=== PATIENT | female | born 2000 | race Caucasian/White ===

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

== ENCOUNTER 2022-08-27 21:26 | Emergency (ER) | payer BC, OTHER ==
[~2022-08-27] VITALS: Ht 172.7 cm; Wt 106.6 kg
[2022-08-27 21:31] VITALS: BP 128/78
== END 2022-08-27 22:57 | disposition home or self-care (01) ==
LOC: ER 21:26
DX: O99.713 Diseases of the skin and subcutaneous tissue complicating pregnancy, third trimester (principal); L05.01 Pilonidal cyst with abscess; Z88.5 Allergy status to narcotic agent; Z79.899 Other long term (current) drug therapy; O99.333 Smoking (tobacco) complicating pregnancy, third trimester; F17.200 Nicotine dependence, unspecified, uncomplicated; Z3A.32 32 weeks gestation of pregnancy
CPT/HCPCS: 10060; 99282-25; A9270

== ENCOUNTER 2022-09-05 18:45 | Emergency (ER) | payer BC, OTHER ==
[~2022-09-05] VITALS: Ht 172.7 cm; Wt 106.6 kg
[2022-09-05 18:55] VITALS: BP 149/83
== END 2022-09-05 20:17 | disposition home or self-care (01) ==
LOC: ER 18:45
DX: O99.713 Diseases of the skin and subcutaneous tissue complicating pregnancy, third trimester (principal); L05.01 Pilonidal cyst with abscess; O99.333 Smoking (tobacco) complicating pregnancy, third trimester; F17.210 Nicotine dependence, cigarettes, uncomplicated; Z3A.35 35 weeks gestation of pregnancy; Z88.5 Allergy status to narcotic agent
CPT/HCPCS: 10060; 99282-25

== ENCOUNTER 2022-10-22 20:09 | Emergency (ER) | payer BC, OTHER ==
[~2022-10-22] VITALS: Ht 172.7 cm; Wt 106.6 kg
[2022-10-22 20:27] VITALS: BP 149/93
== END 2022-10-22 21:12 | disposition home or self-care (01) ==
LOC: ER 20:09
DX: O99.713 Diseases of the skin and subcutaneous tissue complicating pregnancy, third trimester (principal); L05.91 Pilonidal cyst without abscess; O09.613 Supervision of young primigravida, third trimester; O99.333 Smoking (tobacco) complicating pregnancy, third trimester; F17.210 Nicotine dependence, cigarettes, uncomplicated; Z88.5 Allergy status to narcotic agent; Z3A.40 40 weeks gestation of pregnancy
CPT/HCPCS: 10061; 99282-25

== ENCOUNTER 2022-10-26 18:56 | Inpatient (IN) | payer BC, OTHER ==
[~2022-10-26] VITALS: Ht 172.7 cm; Wt 107.3 kg
[2022-10-26 20:37] LABS: BASOPHILS ABSOLUTE AUTO 0.04 K/mm3 (0.00-0.23); BASOPHILS PERCENT AUTO 0 % (0-2); EOSINOPHILS PERCENT AUTO 1 % (0-6); Hemoglobin 12.3 g/dL (11.5-16.0); IMMATURE GRAN ABSOLUTE AUTO 0.06 K/mm3 (0.00-0.10); IMMATURE GRAN PERCENT AUTO 1 % (0-1); LYMPHOCYTES ABSOLUTE AUTO 2.35 K/mm3 (0.84-5.20); LYMPHOCYTES PERCENT AUTO 20 % (21-46); MONOCYTES ABSOLUTE AUTO 0.92 K/mm3 (0.16-1.47); MONOCYTES PERCENT AUTO 8 % (4-13); Mean Corpuscular HGB 28.7 pg (26.0-34.0); Mean Corpuscular HGB Conc 34.2 g/dL (31.5-36.5); Mean Corpuscular Volume 84 fL (80-100); Mean Platelet Volume 11.4 fL (9.1-12.4); NEUTROPHILS ABSOLUTE AUTO 8.24 K/mm3 (1.96-9.15); NEUTROPHILS PERCENT AUTO 70 % (41-73); Platelet Count 281 K/mm3 (150-400); RDW Coefficient Variation 12.2 % (11.7-14.2); RDW Standard Deviation 36.8 fL (35.1-46.3); Red Blood Cell Count 4.29 M/mm3 (3.80-5.20); White Blood Cell Count 11.71 K/mm3 (4.00-11.30)
[2022-10-27] VITALS (42 sets, daily range): BP systolic 101–166; BP diastolic 55–96
[2022-10-28 01:33] VITALS: BP 109/68
[2022-10-28 03:57] VITALS: BP 126/76
[2022-10-28 07:37] VITALS: BP 134/82
[2022-10-28 08:06] LABS: Hematocrit 36.1 % (33.0-51.0); Hemoglobin 12.3 g/dL (11.5-16.0); Mean Corpuscular HGB 28.7 pg (26.0-34.0); Mean Corpuscular HGB Conc 34.1 g/dL (31.5-36.5); Mean Corpuscular Volume 84 fL (80-100); Mean Platelet Volume 11.2 fL (9.1-12.4); Platelet Count 272 K/mm3 (150-400); RDW Coefficient Variation 12.4 % (11.7-14.2); RDW Standard Deviation 37.4 fL (35.1-46.3); Red Blood Cell Count 4.28 M/mm3 (3.80-5.20)
[2022-10-28 12:30] VITALS: BP 118/77
--- NOTE | 2022-10-28 19:00 | NUR ---
DISCHARGE INSTRUCTIONS, WRITTEN AND VERBAL, GIVEN TO PT. ANSWERED ALL QUESITONS AND CONCERNS. IV DISCONTINUED. PT REFUSED ANY PRESCRIPTIONS. ALL PERSONAL BELONGINGS RETURNED. AWAITING FOLLOW UP APPOINTMENT AND DISCHARGE.
[2022-10-28 19:28] VITALS: BP 128/74
--- NOTE | 2022-10-28 19:35 | NUR ---
FOLLOW UP APPOINTMENT SCHEDULED. PT IS DISCHARGED HOME, DRIVEN BY RUBÉN.
== END 2022-10-28 19:45 | disposition home or self-care (01) | DRG 807 ==
LOC: OBS 18:56 → BC 18:58 → OBS 19:08 → BC 19:12
PROVIDERS: ADMIT Advanced Practice Midwife
PROC: 10E0XZZ Delivery of Products of Conception, External Approach (ICD-10-PCS; principal; 2022-10-27)
PROC: 3E0P7VZ Introduction of Hormone into Female Reproductive, Via Natural or Artificial Opening (ICD-10-PCS; 2022-10-27)
PROC: 3E033VJ Introduction of Other Hormone into Peripheral Vein, Percutaneous Approach (ICD-10-PCS; 2022-10-27)
PROC: 10907ZC Drainage of Amniotic Fluid, Therapeutic from Products of Conception, Via Natural or Artificial Opening (ICD-10-PCS; 2022-10-27)
PROC: 4A1HXCZ Monitoring of Products of Conception, Cardiac Rate, External Approach (ICD-10-PCS; 2022-10-27)
PROC: 00HU33Z Insertion of Infusion Device into Spinal Canal, Percutaneous Approach (ICD-10-PCS; 2022-10-27)
PROC: 3E0R3BZ Introduction of Anesthetic Agent into Spinal Canal, Percutaneous Approach (ICD-10-PCS; 2022-10-27)
PROC: 3E0234Z Introduction of Serum, Toxoid and Vaccine into Muscle, Percutaneous Approach (ICD-10-PCS; 2022-10-27)
DX: O48.0 Post-term pregnancy (principal); Z37.0 Single live birth; O99.334 Smoking (tobacco) complicating childbirth; F17.200 Nicotine dependence, unspecified, uncomplicated; Z3A.40 40 weeks gestation of pregnancy; Z88.5 Allergy status to narcotic agent; Z79.899 Other long term (current) drug therapy; Z67.21 Type B blood, Rh negative
CPT/HCPCS: 36415; 51702; 85025; 85027; 86850; 86900; 86901; A9270; J2590; J3010; J7120

== ENCOUNTER 2022-12-22 20:08 | Emergency (ER) | payer OTHER ==
[~2022-12-22] VITALS: Ht 172.7 cm; Wt 90.7 kg
[2022-12-23 01:00] VITALS: BP 113/74
[2022-12-23] MEDS ORDERED: IBUP800 PO (01:00)
== END 2022-12-23 02:20 | disposition home or self-care (01) ==
LOC: ER 20:08
DX: R07.9 Chest pain, unspecified (principal); Z88.5 Allergy status to narcotic agent; Z91.040 Latex allergy status; Z91.030 Bee allergy status; F17.210 Nicotine dependence, cigarettes, uncomplicated
CPT/HCPCS: 71045; 71260; 85379; 93005; 93010; 96374-59; 99285-25; J1885; Q9967

== ENCOUNTER 2024-02-22 20:23 | Emergency (ER) | payer OTHER ==
[~2024-02-22] VITALS: Ht 172.7 cm; Wt 117.9 kg
[~2024-02-22 20:23] MED LIST changes: +IBUP800 PO
[2024-02-22 20:30] VITALS: BP 137/94
== END 2024-02-23 | disposition home or self-care (01) ==
LOC: ER 20:23
DX: O99.713 Diseases of the skin and subcutaneous tissue complicating pregnancy, third trimester (principal); L05.01 Pilonidal cyst with abscess; O99.333 Smoking (tobacco) complicating pregnancy, third trimester; Z91.040 Latex allergy status; Z91.030 Bee allergy status; Z88.5 Allergy status to narcotic agent; Z3A.32 32 weeks gestation of pregnancy
CPT/HCPCS: 10080; 99282-25

== ENCOUNTER 2024-04-18 07:33 | Inpatient (IN) | payer OTHER ==
[~2024-04-18] VITALS: Ht 172.7 cm; Wt 118.0 kg
[2024-04-18] VITALS (31 sets, daily range): BP systolic 111–145; BP diastolic 68–101
[2024-04-18] MEDS ORDERED: Terbutaline Sulfate 1MG / ML 1 ML Amp ONE (07:52)
[2024-04-18] MEDS ORDERED: ALBU90OI INH (07:54)
[2024-04-18] MEDS ORDERED: Carboprost Tromethamine 250 MCG/ML 1ML Amp IM PRN (08:10)
[2024-04-18] MEDS ORDERED: Misoprostol 200 MCG Tab BC PRN (08:10)
[2024-04-18] MEDS ORDERED: Misoprostol 200 MCG Tab PR PRN (08:10)
[2024-04-18] MEDS ORDERED: Oxytocin 10 Unit / ML Vial IM PRN (08:10)
[2024-04-18] MEDS ORDERED: Methylergonovine Maleate 0.2MG / ML 1ML Amp IM PRN ×2 (08:10→21:35)
[2024-04-18] MEDS ORDERED: OXYTOCIN/RINGER'S LACTATE 500 ML IV PRN (08:10)
[2024-04-18] MEDS ORDERED: Lactated Ringer's 1,000 ML IV PRN (08:10)
[2024-04-18] MEDS ORDERED: Ondansetron HCl 2 MG / ML 2ML Vial IV PRN ×2 (08:10→17:10)
[2024-04-18] MEDS ORDERED: Acetaminophen 500 MG Tab PO PRN (08:10)
[2024-04-18] MEDS ORDERED: Calcium Carbonate 500 MG Tab Chew PO SCH (08:15)
[2024-04-18] MEDS ORDERED: Terbutaline Sulfate 1MG / ML 1 ML Amp SC PRN (08:15)
[2024-04-18] MEDS ORDERED: Tranexamic Acid 1,000 MG in NS 100 ML IV SCH (08:20)
[2024-04-18] MEDS ORDERED: Citric Acid/Sodium Citrate 30 ML BTL PO SCH (08:25)
[2024-04-18] MEDS ORDERED: CeFAZolin Sodium 2,000 MG in NS 100 ML IV SCH (08:25)
[2024-04-18] MEDS ORDERED: Metoclopramide HCl 5MG / ML 2ML Vial IV ONE (08:25)
[2024-04-18 08:32] LABS: BASOPHILS ABSOLUTE AUTO 0.05 K/mm3 (0.00-0.23); BASOPHILS PERCENT AUTO 0 % (0-2); EOSINOPHILS ABSOLUTE AUTO 0.08 K/mm3 (0.00-0.68); EOSINOPHILS PERCENT AUTO 1 % (0-6); Hematocrit 36.9 % (33.0-51.0); Hemoglobin 12.4 g/dL (11.5-16.0); IMMATURE GRAN ABSOLUTE AUTO 0.08 K/mm3 (0.00-0.10); IMMATURE GRAN PERCENT AUTO 1 % (0-1); LYMPHOCYTES ABSOLUTE AUTO 2.58 K/mm3 (0.84-5.20); LYMPHOCYTES PERCENT AUTO 22 % (21-46); MONOCYTES ABSOLUTE AUTO 1.03 K/mm3 (0.16-1.47); MONOCYTES PERCENT AUTO 9 % (4-13); Mean Corpuscular HGB 27.4 pg (26.0-34.0); Mean Corpuscular HGB Conc 33.6 g/dL (31.5-36.5); Mean Corpuscular Volume 82 fL (80-100); Mean Platelet Volume 11.8 fL (9.1-12.4); NEUTROPHILS PERCENT AUTO 68 % (41-73); Platelet Count 291 K/mm3 (150-400); RDW Coefficient Variation 13.3 % (11.7-14.2); RDW Standard Deviation 39.2 fL (35.1-46.3); Red Blood Cell Count 4.52 M/mm3 (3.80-5.20); White Blood Cell Count 12.02 K/mm3 (4.00-11.30)
[2024-04-18] MEDS ORDERED: FentaNYL Citrate 50 MCG/ML 2 ML Injection ONE (08:58)
[2024-04-18] MEDS ORDERED: FentaNYL Citrate 50 MCG/ML 2 ML Injection IV PRN (09:10)
[2024-04-18] MEDS ORDERED: OXYTOCIN/RINGER'S LACTATE 500 ML IV SCH ×2 (10:05→21:25)
[2024-04-18] MEDS ORDERED: Lactated Ringer's 1,000 ML IV ONE (10:05)
[2024-04-18] MEDS ORDERED: Penicillin G Potassium 5,000,000 UNITS in NS 250 ML IV ONE (10:05)
[2024-04-18] MEDS ORDERED: Penicillin G Potassium 2,500,000 UNITS in Dextrose 5% 100 ML IV SCH (14:00)
[2024-04-18] MEDS ORDERED: FentaNYL 2mcg/ml-Bup 0.1% Epd 250 ML EPI PRN ×2 (14:05→17:15)
[2024-04-18] MEDS ORDERED: Lactated Ringer's 1,000 ML IV SCH ×3 (14:05→21:35)
[2024-04-18] MEDS ORDERED: ePHEDrine Sulfate 50 MG/ML 1ML Injection XX PRN (14:05)
[2024-04-18] MEDS ORDERED: Naloxone HCl 0.4MG / ML 1ML Vial IV PRN (17:10)
[2024-04-18] MEDS ORDERED: ePHEDrine Sulfate 50 MG/ML 1ML Injection IV PRN (17:10)
[2024-04-18] MEDS ORDERED: Metoclopramide HCl 5MG / ML 2ML Vial IV PRN (17:10)
[2024-04-18] MEDS ORDERED: DiphenhydrAMINE HCl 50 MG/ML 1ML Vial IV PRN (17:10)
[2024-04-18] MEDS ORDERED: Famotidine 20 MG Tab PO ONE (20:00)
[2024-04-18] MEDS ORDERED: Benzocaine Topical Anesthetic Spray 60GM TOP PRN (21:25)
[2024-04-18] MEDS ORDERED: Docusate Sodium 100 MG Cap PO PRN (21:25)
[2024-04-18] MEDS ORDERED: Diphth,Pertuss(Acell),Tet Vac 0.5 ML VIAL IM SCH (21:25)
[2024-04-18] MEDS ORDERED: Acetaminophen 325 MG TABLET PO PRN (21:25)
[2024-04-18] MEDS ORDERED: Lanolin Cream TOP PRN (21:25)
[2024-04-18] MEDS ORDERED: Ibuprofen 400 MG Tab PO PRN (21:30)
[2024-04-18] MEDS ORDERED: Misoprostol 100 MCG Tab PO PRN (21:30)
[2024-04-18] MEDS ORDERED: Witch Hazel/Glycerin PADS TOP PRN (21:30)
[2024-04-18] MEDS ORDERED: Ketorolac Tromethamine 30mg Vial IV PRN (21:30)
[2024-04-18] MEDS ORDERED: FLU VACC TS2024-25(6MOS UP)/PF 45 MCG/0.5 ML SYRINGE IM SCH (21:30)
[2024-04-19] MEDS ORDERED: Methylergonovine Maleate 0.2MG / ML 1ML Amp IV ONE (00:19)
[2024-04-19 04:29] VITALS: BP 105/64
[2024-04-19 07:50] VITALS: BP 128/79
[2024-04-19] MEDS ORDERED: Prenatal Vit/FE Fumarate/FA 1 Tab PO SCH (09:00)
[2024-04-19 09:03] LABS: Hematocrit 36.2 % (33.0-51.0); Hemoglobin 11.9 g/dL (11.5-16.0); Mean Corpuscular HGB 27.5 pg (26.0-34.0); Mean Corpuscular HGB Conc 32.9 g/dL (31.5-36.5); Mean Corpuscular Volume 84 fL (80-100); Platelet Count 293 K/mm3 (150-400); RDW Coefficient Variation 13.2 % (11.7-14.2); RDW Standard Deviation 40.4 fL (35.1-46.3); Red Blood Cell Count 4.33 M/mm3 (3.80-5.20); White Blood Cell Count 14.52 K/mm3 (4.00-11.30)
[2024-04-19 14:18] VITALS: BP 130/69
[2024-04-19 20:27] VITALS: BP 128/77
[2024-04-19 22:18] VITALS: BP 120/72
[2024-04-22 10:10] LABS: HEPATITIS C AB CIA INTERP Negative (Negative); HEPATITIS C ANTIBODY CIA INDEX 0.14 IV
== END 2024-04-19 23:00 | disposition home or self-care (01) | DRG 807 ==
LOC: BC 07:33
PROVIDERS: Obstetrics & Gynecology; ADMIT Advanced Practice Midwife
PROC: 10E0XZZ Delivery of Products of Conception, External Approach (ICD-10-PCS; principal; 2024-04-18)
PROC: 10907ZC Drainage of Amniotic Fluid, Therapeutic from Products of Conception, Via Natural or Artificial Opening (ICD-10-PCS; 2024-04-18)
PROC: 3E0R3BZ Introduction of Anesthetic Agent into Spinal Canal, Percutaneous Approach (ICD-10-PCS; 2024-04-18)
PROC: 00HU33Z Insertion of Infusion Device into Spinal Canal, Percutaneous Approach (ICD-10-PCS; 2024-04-18)
DX: O32.1XX0 Maternal care for breech presentation, not applicable or unspecified (principal); Z37.0 Single live birth; O99.52 Diseases of the respiratory system complicating childbirth; O69.81X0 Labor and delivery complicated by cord around neck, without compression, not applicable or unspecified; O99.214 Obesity complicating childbirth; J45.909 Unspecified asthma, uncomplicated; O99.334 Smoking (tobacco) complicating childbirth; F17.210 Nicotine dependence, cigarettes, uncomplicated; Z3A.39 39 weeks gestation of pregnancy; Z91.040 Latex allergy status; Z88.5 Allergy status to narcotic agent; Z79.899 Other long term (current) drug therapy; Z91.038 Other insect allergy status
CPT/HCPCS: 36415; 51702; 85025; 85027; 86803; 86850; 86900; 86901; 86923; A9270; J1885; J2210; J2540; J2590; J3105; J7050; J7120

== ENCOUNTER 2024-07-10 07:56 | Day surgery (SDC) | payer OTHER ==
[~2024-07-10] VITALS: Ht 175.3 cm; Wt 109.8 kg
[~2024-07-10 07:56] MED LIST changes: +ALBU90OI INH; +Lactated Ringer's 1,000 ML IV ONE; +Lactated Ringer's 1,000 ML ONE
[2024-07-10] MEDS ORDERED: CeFAZolin Sodium 2,000 MG VIAL ONE (08:24)
[2024-07-10] MEDS ORDERED: Lactated Ringer's 1,000 ML IV ONE (08:55)
[2024-07-10] MEDS ORDERED: Midazolam HCl 1MG / ML 2ML Vial ONE (09:15)
[2024-07-10] MEDS ORDERED: propofoL 20 ML IV ONE (09:15)
[2024-07-10] MEDS ORDERED: Dexamethasone Sod Phos 10 MG/ML 1ML VIAL ONE (09:15)
[2024-07-10] MEDS ORDERED: Ondansetron HCl 2 MG / ML 2ML Vial ONE (09:15)
[2024-07-10] MEDS ORDERED: Rocuronium Bromide 10 MG/ML 5ML Injection IV ONE (09:15)
[2024-07-10] MEDS ORDERED: FentaNYL Citrate 50 MCG/ML 2 ML Injection ONE ×2 (09:15→10:11)
[2024-07-10] MEDS ORDERED: Bupivacaine 0.5% W/EPI 1:200000 SDV 10ML INJ ONE (10:02)
[2024-07-10] MEDS ORDERED: Sugammadex Sodium 200 MG/2ML SDV (100 MG/ML) ONE (10:06)
[2024-07-10] MEDS ORDERED: Ketorolac Tromethamine 30mg Vial ONE (10:09)
[2024-07-10 11:18] VITALS: BP 127/88
== END 2024-07-10 11:52 | disposition home or self-care (01) ==
LOC: ORSCSDS 07:56
PROVIDERS: Obstetrics & Gynecology
PROC: 0UT74ZZ Resection of Bilateral Fallopian Tubes, Percutaneous Endoscopic Approach (ICD-10-PCS; principal; 2024-07-10 09:30)
DX: Z30.2 Encounter for sterilization (principal); N83.8 Other noninflammatory disorders of ovary, fallopian tube and broad ligament; E66.9 Obesity, unspecified; Z68.37 Body mass index [BMI] 37.0-37.9, adult; F17.210 Nicotine dependence, cigarettes, uncomplicated; F41.9 Anxiety disorder, unspecified; F32.A Depression, unspecified; J45.909 Unspecified asthma, uncomplicated; Z79.899 Other long term (current) drug therapy
CPT/HCPCS: 88302; J0690; J1100; J1885; J2250; J2405; J2704; J3010; J7120